=== PATIENT | male | born 1990 | race Caucasian/White ===

== ENCOUNTER 2018-08-11 03:16 | Emergency (ER) | payer BC, OTHER ==
[2018-08-11] MEDS ORDERED: Iopamidol 755 Mg/ML 100 ML Bottle IVPUSH ONE (03:37)
[2018-08-11 03:57] LABS: CHLORIDE,CL 100 mmol/L (98-107); SODIUM,NA 137 mmol/L (136-148)
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
[2018-08-11 06:02] VITALS: BP 122/72
== END 2018-08-11 05:30 | disposition home or self-care (01) ==
LOC: MW.ED 03:16
DX: S20.211A Contusion of right front wall of thorax, initial encounter (principal); V89.2XXA Person injured in unspecified motor-vehicle accident, traffic, initial encounter
CPT/HCPCS: 36415; 70450; 71260; 72125; 74177; 80053; 81001; 85025; 93005; 99285; G0390; Q9967; 99284